=== PATIENT | female | born 2000 | race Two or more races ===

== ENCOUNTER 2022-10-01 21:21 | Emergency (ER) | payer OTHER ==
[~2022-10-01] VITALS: Ht 165.1 cm; Wt 59.0 kg
[2022-10-01] MEDS ORDERED: TUSNEL LIQUID178 ML PO (22:58)
[2022-10-01] MEDS ORDERED: ONDANSETRON ODT8 MG PO (22:58)
[2022-10-01] MEDS ORDERED: OSEL75CA PO (22:58)
[2022-10-01] MEDS ORDERED: DOLOGEN CAPLET1 EACH PO (22:58)
[2022-10-02] MEDS ORDERED: PEPCID AC20 MG PO (19:38)
== END 2022-10-01 23:40 | disposition home or self-care (01) ==
LOC: ER 21:21
DX: J10.1 Influenza due to other identified influenza virus with other respiratory manifestations (principal); Z20.822 Contact with and (suspected) exposure to COVID-19

== ENCOUNTER 2022-10-02 15:49 | Emergency (ER) | payer OTHER ==
[~2022-10-02] VITALS: Ht 165.1 cm; Wt 59.0 kg
[~2022-10-02 15:49] MED LIST: DOLOGEN CAPLET1 EACH PO; ONDANSETRON ODT8 MG PO; OSEL75CA PO; TUSNEL LIQUID178 ML PO
[2022-10-02] MEDS ORDERED: PEPCID AC20 MG PO (19:38)
== END 2022-10-02 20:02 | disposition home or self-care (01) ==
LOC: ER 15:49
DX: K29.60 Other gastritis without bleeding (principal); J10.1 Influenza due to other identified influenza virus with other respiratory manifestations

== ENCOUNTER → 2023-12-18 | Emergency (ER) | payer OTHER ==
[~2023-12-18] VITALS: Ht 165.1 cm; Wt 45.4 kg
[~2023-12-18] MED LIST changes: +PEPCID AC20 MG PO
== END | disposition left against medical advice (07) ==
LOC: ER 23:11
DX: Z53.21 Procedure and treatment not carried out due to patient leaving prior to being seen by health care provider (principal)